=== PATIENT | female | born 1955 | race American Indian/Alaskan Native ===

== ENCOUNTER 2016-10-26 09:12 | Outpatient (CLI) | payer OTHER ==
[2016-10-26 10:58] LABS: Blood Urea Nitrogen 19 mg/dL (7-17)
[2016-10-26] MEDS ORDERED: NACL ONE (13:05)
--- NOTE | 2016-10-26 15:40 | Cat Scan Report ---
CT ABDOMEN AND PELVIS WITH CONTRAST INDICATION: Incisional hernia. COMPARISON: 08/27/2014. FINDINGS: Abdomen and pelvis CT performed following oral contrast and intravenous administration of 100 cc of Omnipaque 300. LUNG BASES: Slight cardiomegaly. Interval resolution of pericardial fluid posterior to the left ventricle, though slightly generous fluid toward base of the heart again noted. Few coronary calcifications. Slight bibasilar atelectasis or scarring. Mild eventration of the right hemidiaphragm anteriorly again noted as also mild nonspecific distal esophageal wall prominence/thickening, not excluded for gastroesophageal reflux and/or hiatal hernia, amongst others. ABDOMEN: Diffuse fatty hepatic infiltration again not excluded. Otherwise stable, unremarkable liver, spleen, gallbladder, pancreas, adrenals, nonaneurysmal abdominal aorta, IVC and non-hydronephrotic kidneys. Extrarenal pelves and approximately 2 cm right renal cyst again noted. No ascites or significant adenopathy. Opacified GI tract nonobstructive. Normal appendix. Cecum again slightly low lying in the right hemipelvis. Mild stool throughout colon. Few descending colon diverticuli. Interval enlargement of 2 adjacent left lower quadrant hernias, one again noted containing fat with a transverse neck of approximately 1 cm, axial image 235, series 2. Adjacent hernia to the left is now though much larger with a transverse neck of approximately 10 cm as on axial image 230, series 2, previously 3.5 cm with few nonobstructing small bowel loops also noted herniating into it and extending along the anterior subcutaneous plane along with previously seen nonobstructive colon, few mesenteric vessels and fat. Few hernia repair mariela are also new as on axial images 246-265, series 2. PELVIS: Few sigmoid diverticuli also again seen without acute complication. Uterus surgically absent. Unremarkable urinary bladder. No free fluid or significant adenopathy. Stable bilateral L3-L4 posterior pedicle rods and screws fusion with bone grafting and posterior decompression. Few other bony degenerative changes as well, including right greater than left hip. CONCLUSION: 1. Interval enlargement/recurrence of left lower quadrant ventral wall hernias, as detailed above. 2. Interval resolution of small pericardial effusion. 3. Various other stable findings, including right renal cyst, diverticulosis, hysterectomy and bony changes, amongst others, as described. Thank you for the opportunity to participate in this patient's care.
[2016-10-27] MEDS ORDERED: NACL ONE (11:29)
== END 2016-10-26 09:13 | disposition home or self-care (01) ==
LOC: CT 09:12
PROVIDERS: ATTEND Surgery
DX: E11.9 Type 2 diabetes mellitus without complications (principal); K43.2 Incisional hernia without obstruction or gangrene; I51.7 Cardiomegaly; K76.0 Fatty (change of) liver, not elsewhere classified; N28.1 Cyst of kidney, acquired; K57.30 Diverticulosis of large intestine without perforation or abscess without bleeding; Z90.710 Acquired absence of both cervix and uterus
CPT/HCPCS: 36415; 74177; 82565; 84520; Q9967